=== PATIENT | female | born 1995 | race Caucasian/White ===

== ENCOUNTER 2017-08-15 15:47 | Emergency (ER) | payer OTHER ==
[2017-08-15] MEDS: ACETAMINOPHEN 325 MG TAB PO (16:19)
[2017-08-15] MEDS ORDERED: MAGIC MOUTHWASH SUSPENSION BTL SS (17:00)
[2017-08-15] MEDS: dexameTHASONE 4 MG/ML 1ML VIAL (J1100) PO (17:02)
[2017-08-15] MEDS: MAGIC MOUTHWASH SUSPENSION BTL SS (17:12)
== END 2017-08-15 17:37 | disposition home or self-care (01) ==
LOC: M ED 15:47
DX: J03.90 Acute tonsillitis, unspecified (principal)
CPT/HCPCS: J1100

== ENCOUNTER 2017-08-19 20:00 | Inpatient (IN) | payer OTHER ==
[2017-08-19] MEDS ORDERED: ISOVUE-370 76% 100ML VIAL (Q9967) As Ordered (22:03)
[2017-08-19] MEDS: NS 1,000 ML IV (22:17)
[2017-08-19] MEDS: CLINDAMYCIN 900 MG in APPROPRIATE DILUENT 1 EA IV (22:17)
[2017-08-19] MEDS: KETOROLAC 30 MG/ML VIAL (J1885) IV (22:18)
[2017-08-19] MEDS: methylPREDNISolone INJ 125 MG/2 ML VIAL (J2930) IV (22:18)
[2017-08-19 22:32] LABS: MEAN CORPUSCULAR HEMOGLOBIN 27.9 pg (27.0-33.0); MEAN CORPUSCULAR HGB CONC 32.4 g/dl (32.0-36.5); PLATELET COUNT, AUTOMATED 256 10^3/uL (150-450); RED CELL DISTRIBUTION WIDTH 13.9 % (11.5-14.5); WHITE BLOOD COUNT 13.5 10^3/uL (4.0-10.0)
[2017-08-19 22:34] LABS: ADD MANUAL DIFFER YES; DIFF SLIDE NUMBER 366; POSITIVE MORPH POS FLAG
[2017-08-19 22:50] LABS: ATYPICAL LYMPH 7 % (0-5); LYMPHOCYTES 23 % (16-52); MONOCYTES 5 % (0-8); NEUTROPHILS 65 % (35-75)
[2017-08-19 22:51] LABS: PLATELET ESTIMATE NORMAL (NORMAL)
[2017-08-19 22:52] LABS: ERYTHROCYTE SEDIMENTATION RATE 54 mm/hr (0-20)
[2017-08-19 22:57] LABS: ANION GAP 7 MEQ/L (8-16); BLOOD UREA NITROGEN 8 MG/DL (7-18); C REACTIVE PROTEIN QUANTITATIV 2.84 MG/DL (0.00-0.30); CALCIUM LEVEL 8.2 MG/DL (8.5-10.1); CARBON DIOXIDE LEVEL 30 MEQ/L (21-32); CHLORIDE LEVEL 107 MEQ/L (98-107); CREATININE FOR GFR 0.69 MG/DL (0.55-1.30); GLUCOSE, FASTING 92 MG/DL (70-100); POTASSIUM SERUM 3.8 MEQ/L (3.5-5.1); SODIUM LEVEL 144 MEQ/L (136-145)
[2017-08-20] MEDS: D5W/0.9% SODIUM CHLORIDE 1,000 ML IV ×3 (01:33→23:46)
[2017-08-20] MEDS: AMPICILLIN SOD/SULBACTAM SOD 3 GM in D5W MINI-BAG PLUS 100 ML IV ×4 (04:23→20:52)
[2017-08-20 07:37] LABS: BASO % 0.2 % (0.0-1.0); HEMATOCRIT 37.7 % (36.0-47.0); HEMOGLOBIN 12.3 g/dl (12.0-15.5); IMMATURE GRANULOCYTE % 0.6 % (0-3.0); LYMPH # 1.6 10^3/uL (1.5-6.5); LYMPH % 19.3 % (24.0-44.0); MEAN CORPUSCULAR HEMOGLOBIN 27.9 pg (27.0-33.0); MEAN CORPUSCULAR HGB CONC 32.6 g/dl (32.0-36.5); MEAN CORPUSCULAR VOLUME 85.5 fl (80.0-96.0); MONO # 0.1 10^3/uL (0.0-0.8); MONO % 1.2 % (0.0-5.0); NEUTROPHILS # 6.4 10^3/uL (1.8-7.7); NEUTROPHILS % 78.7 % (36.0-66.0); PLATELET COUNT, AUTOMATED 264 10^3/uL (150-450); RED BLOOD COUNT 4.41 10^6/uL (4.00-5.40); RED CELL DISTRIBUTION WIDTH 13.7 % (11.5-14.5); WHITE BLOOD COUNT 8.2 10^3/uL (4.0-10.0)
[2017-08-20 07:42] LABS: INR 0.97
[2017-08-20 07:49] LABS: ANION GAP 7 MEQ/L (8-16); BLOOD UREA NITROGEN 8 MG/DL (7-18); CALCIUM LEVEL 8.1 MG/DL (8.5-10.1); CARBON DIOXIDE LEVEL 28 MEQ/L (21-32); CHLORIDE LEVEL 108 MEQ/L (98-107); CREATININE FOR GFR 0.63 MG/DL (0.55-1.30); GLUCOSE, FASTING 150 MG/DL (70-100); POTASSIUM SERUM 4.3 MEQ/L (3.5-5.1); SODIUM LEVEL 143 MEQ/L (136-145)
[2017-08-20] MEDS: ACETAMINOPHEN TAB 650MG DOSE (2X325MG) PO ×2 (19:06→23:46)
[2017-08-21] MEDS: AMPICILLIN SOD/SULBACTAM SOD 3 GM in D5W MINI-BAG PLUS 100 ML IV ×4 (01:48→19:59)
[2017-08-21 06:24] LABS: BASO % 0.4 % (0.0-1.0); EOS % 0.3 % (0.0-3.0); HEMATOCRIT 34.8 % (36.0-47.0); IMMATURE GRANULOCYTE % 0.3 % (0-3.0); LYMPH # 2.8 10^3/uL (1.5-6.5); LYMPH % 24.7 % (24.0-44.0); MEAN CORPUSCULAR HEMOGLOBIN 27.4 pg (27.0-33.0); MEAN CORPUSCULAR HGB CONC 31.6 g/dl (32.0-36.5); MEAN CORPUSCULAR VOLUME 86.6 fl (80.0-96.0); MONO # 0.8 10^3/uL (0.0-0.8); MONO % 7.5 % (0.0-5.0); NEUTROPHILS # 7.5 10^3/uL (1.8-7.7); NEUTROPHILS % 66.8 % (36.0-66.0); PLATELET COUNT, AUTOMATED 231 10^3/uL (150-450); RED BLOOD COUNT 4.02 10^6/uL (4.00-5.40); RED CELL DISTRIBUTION WIDTH 13.8 % (11.5-14.5); WHITE BLOOD COUNT 11.2 10^3/uL (4.0-10.0)
[2017-08-21 06:43] LABS: ANION GAP 4 MEQ/L (8-16); BLOOD UREA NITROGEN 8 MG/DL (7-18); CARBON DIOXIDE LEVEL 29 MEQ/L (21-32); CHLORIDE LEVEL 110 MEQ/L (98-107); CREATININE FOR GFR 0.56 MG/DL (0.55-1.30); GLUCOSE, FASTING 100 MG/DL (70-100); POTASSIUM SERUM 3.6 MEQ/L (3.5-5.1); SODIUM LEVEL 143 MEQ/L (136-145)
[2017-08-21] MEDS: ACETAMINOPHEN TAB 650MG DOSE (2X325MG) PO ×3 (07:39→20:59)
[2017-08-21] MEDS: D5W/0.9% SODIUM CHLORIDE 1,000 ML IV ×2 (11:58→23:59)
[2017-08-21] MEDS: MORPHINE 4 MG/ML 1ML VIAL/SYRINGE (J2270) IV (14:26)
[2017-08-21 16:00] LABS: CONTROL LINE HCG INT CTR LINE PRESENT; HCG, SERUM QUALITATIVE NEGATIVE (NEGATIVE)
[2017-08-21] MEDS: NORCO, ANEXSIA 5/325MG TABLET (HYDROcodone/ACETAMINOPHEN) PO ×2 (18:02→23:59)
[2017-08-22] MEDS: AMPICILLIN SOD/SULBACTAM SOD 3 GM in D5W MINI-BAG PLUS 100 ML IV ×4 (01:32→20:12)
[2017-08-22] MEDS: NORCO, ANEXSIA 5/325MG TABLET (HYDROcodone/ACETAMINOPHEN) PO ×2 (04:15→20:12)
[2017-08-22 06:24] LABS: BASO % 0.3 % (0.0-1.0); EOS % 0.2 % (0.0-3.0); HEMATOCRIT 36.5 % (36.0-47.0); HEMOGLOBIN 11.8 g/dl (12.0-15.5); IMMATURE GRANULOCYTE % 0.5 % (0-3.0); LYMPH # 2.5 10^3/uL (1.5-6.5); MEAN CORPUSCULAR HEMOGLOBIN 27.6 pg (27.0-33.0); MEAN CORPUSCULAR HGB CONC 32.3 g/dl (32.0-36.5); MEAN CORPUSCULAR VOLUME 85.5 fl (80.0-96.0); MONO # 1.1 10^3/uL (0.0-0.8); MONO % 8.6 % (0.0-5.0); NEUTROPHILS # 8.9 10^3/uL (1.8-7.7); NEUTROPHILS % 70.4 % (36.0-66.0); PLATELET COUNT, AUTOMATED 302 10^3/uL (150-450); RED BLOOD COUNT 4.27 10^6/uL (4.00-5.40); RED CELL DISTRIBUTION WIDTH 13.8 % (11.5-14.5); WHITE BLOOD COUNT 12.6 10^3/uL (4.0-10.0)
[2017-08-22 06:58] LABS: ANION GAP 6 MEQ/L (8-16); BLOOD UREA NITROGEN 4 MG/DL (7-18); CALCIUM LEVEL 8.3 MG/DL (8.5-10.1); CARBON DIOXIDE LEVEL 31 MEQ/L (21-32); CHLORIDE LEVEL 105 MEQ/L (98-107); CREATININE FOR GFR 0.67 MG/DL (0.55-1.30); GLUCOSE, FASTING 93 MG/DL (70-100); MAGNESIUM LEVEL 2.1 MG/DL (1.4-2.0); POTASSIUM SERUM 3.5 MEQ/L (3.5-5.1); SODIUM LEVEL 142 MEQ/L (136-145)
[2017-08-22] MEDS: D5W/0.9% SODIUM CHLORIDE 1,000 ML IV (07:47)
[2017-08-22] MEDS ORDERED: LIDOCAINE W/EPINEPHRINE 1% 20ML VIAL As Ordered (10:28)
[2017-08-22] MEDS ORDERED: BUPIVACAINE/EPIN 0.5% 30 ML VIAL As Ordered (10:28)
[2017-08-22] MEDS ORDERED: dexameTHASONE 4 MG/ML 1ML VIAL (J1100) As Ordered (10:51)
[2017-08-22] MEDS ORDERED: fentaNYL 100 MCG/2 ML INJECTION (J3010) As Ordered (10:51)
[2017-08-22] MEDS ORDERED: PROPOFOL 200 MG/20 ML VIAL As Ordered (10:51)
[2017-08-22] MEDS ORDERED: MIDAZOLAM INJ 2 MG/2 ML VIAL (J2250) As Ordered (10:51)
[2017-08-22] MEDS ORDERED: LIDOCAINE 2% INJ 100 MG/5 ML SDV (FOR ANES.) As Ordered (10:51)
[2017-08-22] MEDS ORDERED: SUCCINYLCHOLINE 100 MG/5 ML SYRINGE (J0330) As Ordered (10:52)
[2017-08-22] MEDS ORDERED: ONDANSETRON 4MG/2ML VIAL (J2405) As Ordered ×2 (10:55→11:38)
[2017-08-22] MEDS: LR 1,000 ML IV ×3 (11:30→20:15)
[2017-08-22] MEDS ORDERED: fentaNYL 100 MCG/2 ML INJECTION (J3010) IV (11:30)
[2017-08-22] MEDS ORDERED: ONDANSETRON 4MG/2ML VIAL (J2405) IV (11:30)
[2017-08-22] MEDS ORDERED: HYDROMORPHONE HCL 0.5 MG/ 0.5 ML SYRINGE (J1170 PER 1) IV (11:30)
[2017-08-22] MEDS ORDERED: PERCOCET 5MG/325MG TAB As Ordered (11:36)
[2017-08-22] MEDS: PERCOCET 5MG/325MG TAB PO (11:45)
[2017-08-22] MEDS: ONDANSETRON 4MG/2ML VIAL (J2405) IV (11:47)
[2017-08-23] MEDS: AMPICILLIN SOD/SULBACTAM SOD 3 GM in D5W MINI-BAG PLUS 100 ML IV ×2 (01:13→07:51)
[2017-08-23] MEDS: LR 1,000 ML IV (05:57)
[2017-08-23 07:11] LABS: BASO % 0.2 % (0.0-1.0); EOS # 0.1 10^3/uL (0.0-0.50); EOS % 0.4 % (0.0-3.0); HEMATOCRIT 35.8 % (36.0-47.0); HEMOGLOBIN 11.8 g/dl (12.0-15.5); IMMATURE GRANULOCYTE % 0.5 % (0-3.0); LYMPH # 3.4 10^3/uL (1.5-6.5); LYMPH % 24.4 % (24.0-44.0); MEAN CORPUSCULAR HEMOGLOBIN 27.8 pg (27.0-33.0); MEAN CORPUSCULAR VOLUME 84.2 fl (80.0-96.0); MONO # 1.1 10^3/uL (0.0-0.8); MONO % 8.1 % (0.0-5.0); NEUTROPHILS # 9.2 10^3/uL (1.8-7.7); NEUTROPHILS % 66.4 % (36.0-66.0); PLATELET COUNT, AUTOMATED 330 10^3/uL (150-450); RED BLOOD COUNT 4.25 10^6/uL (4.00-5.40); RED CELL DISTRIBUTION WIDTH 13.3 % (11.5-14.5); WHITE BLOOD COUNT 13.9 10^3/uL (4.0-10.0)
[2017-08-23] MEDS: NORCO, ANEXSIA 5/325MG TABLET (HYDROcodone/ACETAMINOPHEN) PO (07:51)
[2017-08-23 07:54] LABS: ANION GAP 8 MEQ/L (8-16); BLOOD UREA NITROGEN 7 MG/DL (7-18); CALCIUM LEVEL 8.4 MG/DL (8.5-10.1); CARBON DIOXIDE LEVEL 30 MEQ/L (21-32); CHLORIDE LEVEL 105 MEQ/L (98-107); CREATININE FOR GFR 0.61 MG/DL (0.55-1.30); GLUCOSE, FASTING 89 MG/DL (70-100); MAGNESIUM LEVEL 2.3 MG/DL (1.4-2.0); POTASSIUM SERUM 4.4 MEQ/L (3.5-5.1); SODIUM LEVEL 143 MEQ/L (136-145)
[2017-08-23 08:14] LABS: C REACTIVE PROTEIN QUANTITATIV 2.43 MG/DL (0.00-0.30)
== END 2017-08-23 12:50 | disposition home or self-care (01) | DRG 134 ==
LOC: M ED INP 08-20 01:33 → M ED 20:00 → M PED 08-20 03:25
PROC: 0C9P0ZZ Drainage of Tonsils, Open Approach (ICD-10-PCS; principal; 2017-08-22 09:30)
DX: J36 Peritonsillar abscess (principal)

== ENCOUNTER 2017-11-10 05:58 | Day surgery (SDC) | payer OTHER ==
[~2017-11-10 05:58] MED LIST: LR 1,000 ML IV
[2017-11-10] MEDS ORDERED: LIDOCAINE 1% MDV 20ML VIAL SQ (06:00)
[2017-11-10 06:45] LABS: CONTROL LINE UCG INT CTR LINE PRESENT; URINE PREG TEST NEGATIVE (NEGATIVE)
[2017-11-10] MEDS: LR 1,000 ML IV (06:55)
[2017-11-10] MEDS ORDERED: LIDOCAINE 2% INJ 100 MG/5 ML SYRINGE As Ordered (07:05)
[2017-11-10] MEDS ORDERED: METOCLOPRAMIDE INJ 10MG/2ML VIAL (J2765) As Ordered (07:05)
[2017-11-10] MEDS ORDERED: PROPOFOL 200 MG/20 ML VIAL As Ordered (07:05)
[2017-11-10] MEDS ORDERED: ONDANSETRON 4MG/2ML VIAL (J2405) As Ordered (07:05)
[2017-11-10] MEDS ORDERED: SUCCINYLCHOLINE 100 MG/5 ML SYRINGE (J0330) As Ordered (07:05)
[2017-11-10] MEDS ORDERED: fentaNYL 100 MCG/2 ML INJECTION (J3010) As Ordered (07:06)
[2017-11-10] MEDS ORDERED: MIDAZOLAM INJ 5 MG/ML VIAL (J2250) As Ordered (07:06)
[2017-11-10] MEDS ORDERED: dexameTHASONE 4 MG/ML 1ML VIAL (J1100) As Ordered (07:48)
[2017-11-10] MEDS: BUPIVACAINE/EPIN 0.5% 30 ML VIAL As Ordered (07:54)
[2017-11-10] MEDS: LIDOCAINE W/EPINEPHRINE 1% 20ML VIAL As Ordered (07:54)
[2017-11-10] MEDS ORDERED: LR 1,000 ML IV ×2 (08:00→08:15)
[2017-11-10] MEDS ORDERED: ACETAMINOPH W/CODEINE #3 TAB UD PO (08:15)
[2017-11-10] MEDS ORDERED: ONDANSETRON 4MG/2ML VIAL (J2405) IV (08:15)
[2017-11-10] MEDS: fentaNYL 100 MCG/2 ML INJECTION (J3010) IV ×3 (08:25→08:35)
[2017-11-10] MEDS: PERCOCET 5MG/325MG TAB PO (08:30)
== END 2017-11-10 10:31 | disposition home or self-care (01) ==
LOC: M SDC 05:58
DX: J35.01 Chronic tonsillitis (principal); Z79.899 Other long term (current) drug therapy
CPT/HCPCS: 42826

== ENCOUNTER 2017-11-12 12:47 | Emergency (ER) | payer OTHER ==
[2017-11-12 13:52] LABS: BASO # 0.1 10^3/uL (0.0-0.2); BASO % 0.4 % (0.0-1.0); EOS # 0.1 10^3/uL (0.0-0.50); EOS % 0.6 % (0.0-3.0); HEMATOCRIT 42.2 % (36.0-47.0); HEMOGLOBIN 13.3 g/dl (12.0-15.5); IMMATURE GRANULOCYTE % 0.3 % (0-3.0); LYMPH # 2.2 10^3/uL (1.5-6.5); LYMPH % 14.8 % (24.0-44.0); MEAN CORPUSCULAR HEMOGLOBIN 27.9 pg (27.0-33.0); MEAN CORPUSCULAR HGB CONC 31.5 g/dl (32.0-36.5); MEAN CORPUSCULAR VOLUME 88.5 fl (80.0-96.0); MONO # 1.2 10^3/uL (0.0-0.8); MONO % 8.3 % (0.0-5.0); NEUTROPHILS % 75.6 % (36.0-66.0); PLATELET COUNT, AUTOMATED 309 10^3/uL (150-450); RED BLOOD COUNT 4.77 10^6/uL (4.00-5.40); RED CELL DISTRIBUTION WIDTH 13.6 % (11.5-14.5); WHITE BLOOD COUNT 14.6 10^3/uL (4.0-10.0)
[2017-11-12] MEDS: NS 1,000 ML IV (14:10)
[2017-11-12] MEDS: NORCO, ANEXSIA 5/325MG TABLET (HYDROcodone/ACETAMINOPHEN) PO (14:11)
[2017-11-12 14:20] LABS: ANION GAP 7 MEQ/L (8-16); BLOOD UREA NITROGEN 14 MG/DL (7-18); CALCIUM LEVEL 8.9 MG/DL (8.5-10.1); CARBON DIOXIDE LEVEL 29 MEQ/L (21-32); CHLORIDE LEVEL 104 MEQ/L (98-107); CREATININE FOR GFR 0.81 MG/DL (0.55-1.30); GLUCOSE, FASTING 82 MG/DL (70-100); POTASSIUM SERUM 3.9 MEQ/L (3.5-5.1); SODIUM LEVEL 140 MEQ/L (136-145)
== END 2017-11-12 15:48 | disposition home or self-care (01) ==
LOC: M ED 12:47
DX: J95.830 Postprocedural hemorrhage of a respiratory system organ or structure following a respiratory system procedure (principal); Z79.3 Long term (current) use of hormonal contraceptives
CPT/HCPCS: 80048

== ENCOUNTER 2018-10-22 20:31 | Emergency (ER) | payer OTHER ==
[~2018-10-22] VITALS: Ht 167.6 cm; Wt 85.0 kg
[~2018-10-22 20:31] MED LIST changes: +ACETAMINOPHEN-COD; +CEPALOZ8 MT; +CLEO150C PO; +IBUP200C25 PO; +IBUPOTC PO; +LIDVISCBTL SSP; +LORA-243 PO; -LR 1,000 ML IV; +MAGICMW SSP; +PERI12LIQ MT; +TRINTAB PO
[2018-10-22] MEDS ORDERED: CELE100C PO (21:13)
[2018-10-22] MEDS ORDERED: HYDR-3363 PO (21:58)
[2018-10-22 22:08] VITALS: BP 120/63
[2018-10-22] MEDS ORDERED: hydrOXYzine 25 MG TAB PO ONE (22:15)
== END 2018-10-22 22:22 | disposition home or self-care (01) ==
LOC: M ED 20:31
DX: F41.0 Panic disorder [episodic paroxysmal anxiety] (principal)